=== PATIENT | female | born 1990 | race Two or more races ===

== ENCOUNTER 2017-11-13 15:23 | Emergency (ER) | payer OTHER ==
[~2017-11-13] VITALS: Ht 157.5 cm; Wt 105.7 kg
[2017-11-13] MEDS ORDERED: PRENATAL + DHA1 EAC1 (15:34)
== END 2017-11-13 20:02 | disposition home or self-care (01) ==
LOC: ER 15:23
DX: O20.0 Threatened abortion (principal); Z34.02 Encounter for supervision of normal first pregnancy, second trimester

== ENCOUNTER 2018-04-06 15:15 | Inpatient (IN) | payer OTHER ==
[~2018-04-06] VITALS: Ht 157.5 cm; Wt 116.1 kg
[~2018-04-06 15:15] MED LIST: PRENATAL + DHA1 EAC1
== END 2018-04-23 13:06 | disposition home or self-care (01) | DRG 788 ==
LOC: LDR 04-20 10:15 → OB/GYN 04-20 10:15 → O/R 04-20 14:04 → OB/GYN 04-20 14:10 → O/R 04-20 15:25 → LDR 04-20 19:07 → OB/GYN 04-21 10:53
PROVIDERS: Specialist
PROC: 4A1HXCZ Monitoring of Products of Conception, Cardiac Rate, External Approach (ICD-10-PCS; 2018-04-20)
PROC: 10D00Z1 Extraction of Products of Conception, Low, Open Approach (ICD-10-PCS; principal; 2018-04-20 05:30)
DX: O14.14 Severe pre-eclampsia complicating childbirth (principal); O24.420 Gestational diabetes mellitus in childbirth, diet controlled; Z3A.39 39 weeks gestation of pregnancy; Z37.0 Single live birth